=== PATIENT | male | born 1980 | race African-American/Black ===

== ENCOUNTER 2016-12-18 18:42 | Inpatient (IN) | payer SELFPAY ==
[~2016-12-18] VITALS: Ht 177.8 cm; Wt 144.2 kg
[2016-12-18] MEDS ORDERED: HYDROCODONE/APAP 5/325MG TABLET. PO ONE (20:00)
[2016-12-18] MEDS ORDERED: KETOROLAC TROMETHAMINE 60 MG/2 ML INJ. IM ONE (20:00)
--- NOTE | 2016-12-18 20:22 | PHYS DOC ---
Past Medical History Past Medical History: Other Additional Past Medical Histor: PE Past Surgical History: No Surgical History Alcohol Use: Heavy Drug Use: None Adult General Chief Complaint Chief Complaint: ELBOW PROBLEM HPI HPI Patient is a 36 year old male who presents with L elbow pain. Patient reports he awoke yesterday morning with a sharp pain in his L elbow just distal to the joint. No trauma or other inciting event. Pain worse with extension of arm. He took an aleve today with insufficient relief. Patient does report he had similar episode two weeks ago that resolved spontaneously. No other acute complaints. Review of Systems Review of Systems Constitutional: Denies fever or chills Respiratory: Denies cough or shortness of breath Cardiovascular: Denies chest pain GI: Denies abdominal pain, nausea, vomiting, or diarrhea Musculoskeletal: L elbow pain Neurologic: Denies headache, focal weakness or sensory changes Current Medications Current Medications Current Medications Medications (Trade) Dose Ordered Sig/Thomas Start Time Stop Time Status Last Admin Dose Admin Acetaminophen/ Hydrocodone Bitart (Lortab 5/325) 2 tab 1X ONCE 12/18/16 20:00 12/18/16 20:01 DC 12/18/16 20:06 2 TAB Amlodipine Besylate (Norvasc) 10 mg 1X ONCE 12/18/16 20:30 12/18/16 20:38 DC 12/18/16 20:41 10 MG Ketorolac Tromethamine (Toradol Im) 30 mg 1X ONCE 12/18/16 20:00 12/18/16 20:01 DC 12/18/16 20:07 30 MG Oxycodone HCl (Roxicodone) 5 mg 1X ONCE 12/18/16 22:00 12/18/16 22:01 Allergies Allergies Allergies Coded Allergies Type Severity Reaction Last Updated Verified No Known Drug Allergies 12/18/16 No Physical Exam Physical Exam Constitutional: Well developed, well nourished, no acute distress, non-toxic appearance HENT: Normocephalic, atraumatic Eyes: EOMI, conjunctiva normal, no discharge Neck: No stridor Pulmonary: No respiratory distress, lungs CTAB Cardiovascular: RRR, no m/r/g Skin: Warm, dry Neurologic: Alert and oriented X 3 Musculoskeletal: L elbow/arm visually unremarkable compared to R; TTP over proximal, dorsal forearm; no skin lesion or deformity noted; no erythema or warmth to touch; pain with passive or active ROM; 2+ radial pulse, sensation to light touch intact throughout; L hand minimally swollen compared to R Current Patient Data Vital Signs Vital Signs Date Time Temp Pulse Resp B/P Pulse Ox O2 Delivery O2 Flow Rate FiO2 12/18/16 20:41 76 230/141 12/18/16 20:24 20 93 Room Air 12/18/16 19:05 98.1 98.1 EKG EKG [] Radiology/Procedures Radiology/Procedures X-ray L elbow (my read): Bone spur from olecranon. No acute bony abnormality. LUE US: Pending Course & Med Decision Making Course & Med Decision Making Pertinent Labs and Imaging studies reviewed. (See chart for details) Patient is 36 year old male who presents with L elbow pain. Does not appear infectious in origin. Will obtain x-ray of L elbow. Oral pain meds and IM toradol ordered. X-ray results as above. Discussed results with patient, who continues to have significant pain. Will obtain LUE US at this time to r/o DVT. Will turn patient care over to Dr. Iqbal at this time. Dragon Disclaimer Dragon Disclaimer This electronic medical record was generated, in whole or in part, using a voice recognition dictation system. Departure Departure Referrals: NO PCP (PCP) TI SOLANO MD Dec 18, 2016 20:22
[2016-12-18] MEDS ORDERED: AMLODIPINE BESYLATE 5 MG TABLET. PO ONE (20:30)
[2016-12-18] MEDS ORDERED: OXYCODONE IR 5 MG TABLET. PO ONE (22:00)
[2016-12-19] VITALS (8 sets, daily range): BP systolic 161–199; BP diastolic 94–130
--- NOTE | 2016-12-19 00:02 | RAD ---
INDICATION: Left arm pain COMPARISON: None TECHNIQUE: Grayscale, color and spectral doppler ultrasound images are obtained through the left arm deep venous system. FINDINGS: Vascular flow is seen in the internal jugular, subclavian, axillary, brachialis, basilic, cephalic, radial and ulnar veins. Posterior to the elbow in the region of pain there is a fluid collection identified measuring approximately 31 x 11 millimeter. IMPRESSION: No deep vein thrombosis identified of the left arm. Fluid collection posterior to the elbow. Could be secondary to an elbow joint effusion or other causes of fluid such as bursitis. Would correlate with infectious symptoms in the region to ensure there is not an infection of this structure. Electronically signed by: Dennis Colunga (Dec 18, 2016 23:59:51)
--- NOTE | 2016-12-19 02:01 | RAD ---
INDICATION: Pain in the elbow COMPARISON: None TECHNIQUE: Axial CT images obtained through the left elbow without contrast with reformats processed. One or more of the following individualized dose reduction techniques were utilized for this examination: 1. Automated exposure control; 2. Adjustment of the mA and/or kV according to patient size; 3. Use of iterative reconstruction technique. FINDINGS: There is a large elbow joint effusion identified with both anterior and posterior component. No definite acute fracture or dislocation. There is some edema to the subcutaneous soft tissues overlying the posterior aspect of the elbow. IMPRESSION: Large joint effusion is identified of unknown etiology. Cannot exclude infectious involvement on CT. There is some stranding to the subcutaneous fat overlying the posterior aspect of the elbow. Electronically signed by: Dennis Colunga (Dec 19, 2016 02:00:56)
[2016-12-19] MEDS ORDERED: AMLODIPINE BESYLATE 5 MG TABLET. PO ONE (02:30)
[2016-12-19] MEDS ORDERED: CEFTRIAXONE 1GM IVPB FOR OMNI 50 ML IV ONE (02:30)
[2016-12-19 03:01] LABS: BASO % 0 % (0-3); EOS % 1 % (0-3); HEMATOCRIT 53.7 % (39.0-53.0); LYMPH # 2.1 x10^3/uL (1.0-4.8); LYMPH % 34 % (24-48); MEAN CORPUSCULAR HEMOGLOBIN 39 pg (25-35); MEAN CORPUSCULAR HGB CONC 34 g/dL (31-37); MEAN CORPUSCULAR VOLUME 117 fL (79-100); MONO % 9 % (0-9); NEUT % 56 % (31-73); PLATELET COUNT 195 x10^3/uL (140-400); RED BLOOD COUNT 4.59 x10^6/uL (4.30-5.70); RED CELL DISTRIBUTION WIDTH 15.5 % (11.5-14.5); WHITE BLOOD COUNT 6.2 x10^3/uL (4.0-11.0)
[2016-12-19 03:07] LABS: CALCIUM 8.7 mg/dL (8.5-10.1); GFR 101.7; POTASSIUM 3.7 mmol/L (3.5-5.1)
[2016-12-19 03:12] LABS: ALBUMIN 3.7 g/dL (3.4-5.0); ALBUMIN/GLOBULIN RATIO 0.8 (1.0-1.7); C-REACTIVE PROTEIN 22.5 mg/L (0-3.3); TOTAL BILIRUBIN 1.6 mg/dL (0.2-1.0); TOTAL PROTEIN 8.5 g/dL (6.4-8.2)
[2016-12-19] MEDS: IV NORMAL SALINE 1000ML BAG 1,000 ML IV SCH ×2 (03:40→11:40)
[2016-12-19] MEDS ORDERED: FENTANYL PF 100 MCG/2 ML VIAL. IV PRN (03:45)
[2016-12-19] MEDS ORDERED: ONDANSETRON PF 4 MG/2 ML VIAL. IV PRN ×2 (03:45→10:30)
[2016-12-19] MEDS ORDERED: ACETAMINOPHEN 325 MG TABLET. PO PRN ×2 (03:45→10:30)
[2016-12-19 05:26] LABS: PLT ESTIMATE ADEQUATE (ADEQUATE); POLYCHROMASIA SLIGHT
--- NOTE | 2016-12-19 08:02 | RAD ---
ELBOW LEFT 3V Clinical Indication: Elbow pain, unable to move, no acute injury. Comparison: None. Technique: AP, oblique and lateral views of the left elbow are obtained. Findings: No acute fracture or dislocation is seen. No definite posterior fat pad is visualized to suggest effusion or fracture. Degenerative changes are seen with bony spurring present. Surrounding soft tissues demonstrate no acute finding. IMPRESSION: No acute osseous injury seen.
--- NOTE | 2016-12-19 08:23 | PDOC ---
PROGRESS NOTES Subjective Subjective Problems overnight: Objective Vital Signs Vital Signs Date Time Temp Pulse Resp B/P Pulse Ox O2 Delivery O2 Flow Rate FiO2 12/19/16 07:21 18 91 Room Air 12/19/16 05:14 98.3 73 198/123 98.3 Labs Laboratory Tests Test 12/19/16 02:35 White Blood Count 6.2x10^3/uL (4.0-11.0) Red Blood Count 4.59x10^6/uL (4.30-5.70) Hemoglobin 18.0g/dL (13.0-17.5) Hematocrit 53.7% (39.0-53.0) Mean Corpuscular Volume 117fL (79-100) Mean Corpuscular Hemoglobin 39pg (25-35) Mean Corpuscular Hemoglobin Concent 34g/dL (31-37) Red Cell Distribution Width 15.5% (11.5-14.5) Platelet Count 195x10^3/uL (140-400) Neutrophils (%) (Auto) 56% (31-73) Lymphocytes (%) (Auto) 34% (24-48) Monocytes (%) (Auto) 9% (0-9) Eosinophils (%) (Auto) 1% (0-3) Basophils (%) (Auto) 0% (0-3) Neutrophils # (Auto) 3.5x10^3uL (1.8-7.7) Lymphocytes # (Auto) 2.1x10^3/uL (1.0-4.8) Monocytes # (Auto) 0.5x10^3/uL (0.0-1.1) Eosinophils # (Auto) 0.1x10^3/uL (0.0-0.7) Basophils # (Auto) 0.0x10^3/uL (0.0-0.2) Platelet Estimate Adequate (ADEQUATE) Giant Platelets Occ Polychromasia Slight Macrocytosis Mod Erythrocyte Sedimentation Rate 3 (0-15) Sodium Level 142mmol/L (136-145) Potassium Level 3.7mmol/L (3.5-5.1) Chloride Level 101mmol/L (98-107) Carbon Dioxide Level 32mmol/L (21-32) Anion Gap 9 (6-14) Blood Urea Nitrogen 9mg/dL (8-26) Creatinine 1.0mg/dL (0.7-1.3) Estimated GFR (Cockcroft-Gault) 101.7 BUN/Creatinine Ratio 9 (6-20) Glucose Level 101mg/dL (70-99) Lactic Acid Level 1.2mmol/L (0.4-2.0) Calcium Level 8.7mg/dL (8.5-10.1) Total Bilirubin 1.6mg/dL (0.2-1.0) Aspartate Amino Transf (AST/SGOT) 30U/L (15-37) Alanine Aminotransferase (ALT/SGPT) 35U/L (16-63) Alkaline Phosphatase 76U/L (46-116) C-Reactive Protein, Quantitative 22.5mg/L (0-3.3) Total Protein 8.5g/dL (6.4-8.2) Albumin 3.7g/dL (3.4-5.0) Albumin/Globulin Ratio 0.8 (1.0-1.7) Laboratory Tests Test 12/19/16 02:35 White Blood Count 6.2x10^3/uL (4.0-11.0) Red Blood Count 4.59x10^6/uL (4.30-5.70) Hemoglobin 18.0g/dL (13.0-17.5) Hematocrit 53.7% (39.0-53.0) Mean Corpuscular Volume 117fL (79-100) Mean Corpuscular Hemoglobin 39pg (25-35) Mean Corpuscular Hemoglobin Concent 34g/dL (31-37) Red Cell Distribution Width 15.5% (11.5-14.5) Platelet Count 195x10^3/uL (140-400) Neutrophils (%) (Auto) 56% (31-73) Lymphocytes (%) (Auto) 34% (24-48) Monocytes (%) (Auto) 9% (0-9) Eosinophils (%) (Auto) 1% (0-3) Basophils (%) (Auto) 0% (0-3) Neutrophils # (Auto) 3.5x10^3uL (1.8-7.7) Lymphocytes # (Auto) 2.1x10^3/uL (1.0-4.8) Monocytes # (Auto) 0.5x10^3/uL (0.0-1.1) Eosinophils # (Auto) 0.1x10^3/uL (0.0-0.7) Basophils # (Auto) 0.0x10^3/uL (0.0-0.2) Platelet Estimate Adequate (ADEQUATE) Giant Platelets Occ Polychromasia Slight Macrocytosis Mod Erythrocyte Sedimentation Rate 3 (0-15) Sodium Level 142mmol/L (136-145) Potassium Level 3.7mmol/L (3.5-5.1) Chloride Level 101mmol/L (98-107) Carbon Dioxide Level 32mmol/L (21-32) Anion Gap 9 (6-14) Blood Urea Nitrogen 9mg/dL (8-26) Creatinine 1.0mg/dL (0.7-1.3) Estimated GFR (Cockcroft-Gault) 101.7 BUN/Creatinine Ratio 9 (6-20) Glucose Level 101mg/dL (70-99) Lactic Acid Level 1.2mmol/L (0.4-2.0) Calcium Level 8.7mg/dL (8.5-10.1) Total Bilirubin 1.6mg/dL (0.2-1.0) Aspartate Amino Transf (AST/SGOT) 30U/L (15-37) Alanine Aminotransferase (ALT/SGPT) 35U/L (16-63) Alkaline Phosphatase 76U/L (46-116) C-Reactive Protein, Quantitative 22.5mg/L (0-3.3) Total Protein 8.5g/dL (6.4-8.2) Albumin 3.7g/dL (3.4-5.0) Albumin/Globulin Ratio 0.8 (1.0-1.7) Assessment Assessment POD# [], S/P [] Problems: Plan Plan of Care Full consult to follow reviewed all of his images. he has oa of the left elbow with significant joint effusion and history of gout limited rom due to pain I aspirated 12 cc of straw colored fluid from his elbow under sterile conditions. He tolerated the procedure well His pain was much improved after the aspiration. Likely a reactive infusion and not infected, but will keep him NPO until the cell count and crystals return. pain control, ice. BILLY CONTRERAS MD Dec 19, 2016 08:23
[2016-12-19 10:16] LABS: BF CLARITY CLOUDY; BF COLOR YELLOW
--- NOTE | 2016-12-19 10:26 | PDOC1 ---
History and Physical Current Problem List Problem List Problems Medical Problems: (1) Elbow pain Status: Acute (2) Septic joint of left elbow Status: Acute Current Medications Current Medications Current Medications Medications (Trade) Dose Ordered Sig/Thomas Start Time Stop Time Status Last Admin Dose Admin Acetaminophen (Tylenol) 650 mg PRN Q4HRS PRN 12/19/16 03:45 12/20/16 03:44 Acetaminophen/ Hydrocodone Bitart (Lortab 5/325) 2 tab 1X ONCE 12/18/16 20:00 12/18/16 20:01 DC 12/18/16 20:06 2 TAB Amlodipine Besylate (Norvasc) 10 mg 1X ONCE 12/18/16 20:30 12/18/16 20:38 DC 12/18/16 20:41 10 MG Amlodipine Besylate 10 mg 10 mg 1X ONCE 12/19/16 02:30 12/19/16 02:31 DC 12/19/16 02:10 10 MG Ceftriaxone Sodium (Rocephin 1gm Ivpb For Omni) 50 ml @ 100 mls/hr 1X ONCE 12/19/16 02:30 12/19/16 02:59 DC 12/19/16 02:56 100 MLS/HR Fentanyl Citrate 50 mcg 50 mcg PRN Q2HR PRN 12/19/16 03:45 12/20/16 03:44 12/19/16 07:21 50 MCG Ketorolac Tromethamine (Toradol Im) 30 mg 1X ONCE 12/18/16 20:00 12/18/16 20:01 DC 12/18/16 20:07 30 MG Ondansetron HCl (Zofran) 4 mg PRN Q8HRS PRN 12/19/16 03:45 12/20/16 03:44 Oxycodone HCl (Roxicodone) 5 mg 1X ONCE 12/18/16 22:00 12/18/16 22:01 DC 12/18/16 22:16 5 MG Sodium Chloride (Iv Sodium Chloride 0.9% 1000ml Bag) 1,000 ml @ 125 mls/hr Q8H 12/19/16 03:40 12/20/16 03:39 12/19/16 03:40 125 MLS/HR Allergies Allergies Allergies Coded Allergies Type Severity Reaction Last Updated Verified No Known Drug Allergies 12/18/16 No ROS Review of System CONSTITUTIONAL: No fever or chills EYES: No recent changes SKIN: No rash or itching CARDIOVASCULAR: No chest pain, syncope, palpitations, or edema RESPIRATORY: No SOB or cough GASTROINTESTINAL: No nausea, vomiting or abdominal pain NEUROLOGICAL: No headaches or weakness ENDOCRINE: No cold or heat intolerance GENITOURINARY: No urgency or frequency of urination MUSCULOSKELETAL: LEFT ELBOW SWELLING LYMPHATICS: No enlarged lymph nodes PSYCHIATRIC: No anxiety or depression Physical Exam Physical Exam GEN.: No apparent distress. Alert and oriented. OBESE HEENT: Head is normocephalic, atraumatic NECK: Supple. NO JVD LUNGS: Clear to auscultation. normal airflow HEART: RRR, S1, S2 present. Peripheral pulses intact ABDOMEN: Soft, nontender. Positive bowel sounds. EXTREMITIES: Without any cyanosis. left elbow ROM good, no tenderness, seen after elbow tap NEUROLOGIC: Normal speech, normal tone PSYCHIATRIC: Normal affect, normal mood. SKIN: No ulcerations Vitals Vitals Vital Signs Date Time Temp Pulse Resp B/P Pulse Ox O2 Delivery O2 Flow Rate FiO2 12/19/16 08:00 Room Air 12/19/16 07:51 16 96 12/19/16 07:40 97.7 73 168/102 97.7 Labs Labs Laboratory Tests Test 12/19/16 02:35 12/19/16 07:06 White Blood Count 6.2x10^3/uL (4.0-11.0) Red Blood Count 4.59x10^6/uL (4.30-5.70) Hemoglobin 18.0g/dL (13.0-17.5) Hematocrit 53.7% (39.0-53.0) Mean Corpuscular Volume 117fL (79-100) Mean Corpuscular Hemoglobin 39pg (25-35) Mean Corpuscular Hemoglobin Concent 34g/dL (31-37) Red Cell Distribution Width 15.5% (11.5-14.5) Platelet Count 195x10^3/uL (140-400) Neutrophils (%) (Auto) 56% (31-73) Lymphocytes (%) (Auto) 34% (24-48) Monocytes (%) (Auto) 9% (0-9) Eosinophils (%) (Auto) 1% (0-3) Basophils (%) (Auto) 0% (0-3) Neutrophils # (Auto) 3.5x10^3uL (1.8-7.7) Lymphocytes # (Auto) 2.1x10^3/uL (1.0-4.8) Monocytes # (Auto) 0.5x10^3/uL (0.0-1.1) Eosinophils # (Auto) 0.1x10^3/uL (0.0-0.7) Basophils # (Auto) 0.0x10^3/uL (0.0-0.2) Platelet Estimate Adequate (ADEQUATE) Giant Platelets Occ Polychromasia Slight Macrocytosis Mod Erythrocyte Sedimentation Rate 3 (0-15) Sodium Level 142mmol/L (136-145) Potassium Level 3.7mmol/L (3.5-5.1) Chloride Level 101mmol/L (98-107) Carbon Dioxide Level 32mmol/L (21-32) Anion Gap 9 (6-14) Blood Urea Nitrogen 9mg/dL (8-26) Creatinine 1.0mg/dL (0.7-1.3) Estimated GFR (Cockcroft-Gault) 101.7 BUN/Creatinine Ratio 9 (6-20) Glucose Level 101mg/dL (70-99) Lactic Acid Level 1.2mmol/L (0.4-2.0) Calcium Level 8.7mg/dL (8.5-10.1) Total Bilirubin 1.6mg/dL (0.2-1.0) Aspartate Amino Transf (AST/SGOT) 30U/L (15-37) Alanine Aminotransferase (ALT/SGPT) 35U/L (16-63) Alkaline Phosphatase 76U/L (46-116) C-Reactive Protein, Quantitative 22.5mg/L (0-3.3) Total Protein 8.5g/dL (6.4-8.2) Albumin 3.7g/dL (3.4-5.0) Albumin/Globulin Ratio 0.8 (1.0-1.7) Body Fluid Source Synovial Body Fluid Color Yellow Body Fluid Clarity Cloudy Body Fluid Nucleated Cells 94280/cmm Body Fluid Mononuclear WBCs (%) 8% Body Fluid Polymorphonuclear Cells 92% Body Fluid Total RBCs Counted 1/cmm Laboratory Tests Test 12/19/16 02:35 12/19/16 07:06 White Blood Count 6.2x10^3/uL (4.0-11.0) Red Blood Count 4.59x10^6/uL (4.30-5.70) Hemoglobin 18.0g/dL (13.0-17.5) Hematocrit 53.7% (39.0-53.0) Mean Corpuscular Volume 117fL (79-100) Mean Corpuscular Hemoglobin 39pg (25-35) Mean Corpuscular Hemoglobin Concent 34g/dL (31-37) Red Cell Distribution Width 15.5% (11.5-14.5) Platelet Count 195x10^3/uL (140-400) Neutrophils (%) (Auto) 56% (31-73) Lymphocytes (%) (Auto) 34% (24-48) Monocytes (%) (Auto) 9% (0-9) Eosinophils (%) (Auto) 1% (0-3) Basophils (%) (Auto) 0% (0-3) Neutrophils # (Auto) 3.5x10^3uL (1.8-7.7) Lymphocytes # (Auto) 2.1x10^3/uL (1.0-4.8) Monocytes # (Auto) 0.5x10^3/uL (0.0-1.1) Eosinophils # (Auto) 0.1x10^3/uL (0.0-0.7) Basophils # (Auto) 0.0x10^3/uL (0.0-0.2) Platelet Estimate Adequate (ADEQUATE) Giant Platelets Occ Polychromasia Slight Macrocytosis Mod Erythrocyte Sedimentation Rate 3 (0-15) Sodium Level 142mmol/L (136-145) Potassium Level 3.7mmol/L (3.5-5.1) Chloride Level 101mmol/L (98-107) Carbon Dioxide Level 32mmol/L (21-32) Anion Gap 9 (6-14) Blood Urea Nitrogen 9mg/dL (8-26) Creatinine 1.0mg/dL (0.7-1.3) Estimated GFR (Cockcroft-Gault) 101.7 BUN/Creatinine Ratio 9 (6-20) Glucose Level 101mg/dL (70-99) Lactic Acid Level 1.2mmol/L (0.4-2.0) Calcium Level 8.7mg/dL (8.5-10.1) Total Bilirubin 1.6mg/dL (0.2-1.0) Aspartate Amino Transf (AST/SGOT) 30U/L (15-37) Alanine Aminotransferase (ALT/SGPT) 35U/L (16-63) Alkaline Phosphatase 76U/L (46-116) C-Reactive Protein, Quantitative 22.5mg/L (0-3.3) Total Protein 8.5g/dL (6.4-8.2) Albumin 3.7g/dL (3.4-5.0) Albumin/Globulin Ratio 0.8 (1.0-1.7) Body Fluid Source Synovial Body Fluid Color Yellow Body Fluid Clarity Cloudy Body Fluid Nucleated Cells 05535/cmm Body Fluid Mononuclear WBCs (%) 8% Body Fluid Polymorphonuclear Cells 92% Body Fluid Total RBCs Counted 1/cmm VTE Prophylaxis Ordered VTE Prophylaxis Devices: Yes VTE Pharmacological Prophylaxi: Yes TY DEL RIO MD Dec 19, 2016 10:26
[2016-12-19] MEDS ORDERED: ALBUTEROL SULFATE 2.5 MG/3 ML NEBU. NEB PRN (10:30)
--- NOTE | 2016-12-19 11:03 | ACF ---
Admit Criteria Forms Admit Criteria Forms Admit Criteria Forms MUSCULOSKELETAL DISEASE GRG Clinical Indications for Admission to Inpatient Care (Place 'X' for any and all applicable criteria): Hospital admission is needed for appropriate care of the patient because of 1 or more of the following: [ ]I. Fracture, dislocation, or other musculoskeletal injury requiring inpatient care(medical) as indicated by 1 or more of the following(4)(5)(6)(7) [ ]a) Vertebral fracture requiring observation for instability or neurologic compromise (8) [ ]b) Compartment syndrome (proven or cannot be ruled out during observation level of care) (9) [ ]c) Limb-threatening injury [ ]d) Major injury requiring inpatient stabilization such as traction initiation or external fixation before internal fixation or closure of complex or open fracture [ ]e) Major injury requiring inpatient treatment after emergency or observation level care (as appropriate) [ ]f) Severe pain requiring acute inpatient management [ ]g) Injury with suspicion of abuse or neglect (eg., child, dependent elderly) [ ]II. Newly diagnosed or suspected bone, joint, or orthopedic device infection (e.g., osteomyelitis, septic arthritis) needing 1 or more of the following(1)(2)(3) [ ]a) IV antibiotics that cannot be initiated in other than inpatient setting (e.g., patient too unstable or home infusion not available) [ ]b) Device removal or replacement [ ]c) Bone or soft tissue debridement [ ]d) Joint drainage (drain placement or repetitive aspirations) [ ]III. Severe rheumatologic disease (e.g., systemic lupus erythematosus, rheumatoid arthritis) with complications or comorbidities (Also use Optimal Recovery Care Criteria or General Recovery Criteria as appropriate on the basis of predominant condition), including 1 or more of the following( 10)(11)(12)(13) [ ]a) Severe infection (e.g., TRAVELING AUDITOR infection, sepsis) (14) [ ]b) Respiratory complications, including 1 or more of the following : [ ]i) Pleural effusion with respiratory compromise [ ]ii) Pulmonary hypertension with congestive failure [ ]iii) Respiratory failure [ ]iv) Pulmonary hemorrhage (15) [ ]c) Hematologic disease, including 1 or more of the following: [ ]i) Coagulopathy with bleeding [ ]ii) Thrombosis with hypercoagulable state [ ]iii) Thrombotic thrombocytopenic purpura [ ]d) Cerebritis with seizures, psychosis, or other severe abnormalities [ ]e) Vertebral destruction with monitoring needed for cervical myelopathy& possible respiratory compromise [ ]f) Exacerbation that requires inpatient treatment (e.g., intravenous immunosuppression) (16) [ ]g) Acute renal failure [ ]h) Cerebritis with seizures, psychosis, Altered mental status, or other neurologic abnormalities [ ]i) Pericardial effusion with tamponade [ ]j) Vertebral destruction, with monitoring needed for cervical myelopathy and possible respiratory compromise [ ]IV. Severe vasculitis with complications or comorbidities (Also use Optimal Recovery Care Criteria General Recovery Criteria as appropriate on the basis of predominant condition), including 1 or more of the following(11)(12)(17)(18)(19)(20) [ ]a) Exacerbation that requires inpatient treatment (e.g., intravenous immunosuppression) (19)(21) [ ]b) Pulmonary hemorrhage (15) [ ]c) TRAVELING AUDITOR vasculitis with seizures, psychosis, Altered mental status that is severe or persistent, or other severe abnormalities (22) [ ]d) Cerebral infarction [ ]e) Gastrointestinal ischemia [ ]f) Gangrene or threatened amputation [ ]g) Renal failure (16) [ ]h) Other significant complications of vasculitis ( eg., tissue or organ ischemia, organ dysfunction ) [ ]V. Severe myopathy as indicated by 1 or more of the following (28)(29) [ ]a) New onset of airway compromise or inability to swallow [ ]b) Respiratory deterioration with observation needed for impending respiratory failure [ ]c) Exacerbation that requires inpatient treatment (e.g., intravenous immunosuppression) [ ]. Severe crystal gout (arthropathy) indicated by 1 or more of the following (23)(24) [ ]a) Severe pain requiring acute inpatient management [ ]b) Exacerbation that requires inpatient treatment (e.g., intravenous treatment) [ ]VII.Rhabdomyolysis and 1 or more of the following (25)(26)(27) [ ]a) Acute renal failure [ ]b) Need for intravenous hydration after emergency or observation level care (as appropriate) [ ]c) Inability to maintain oral hydration [ ]d) Change in mental status [ ]e) Electrolyte abnormality that remains after emergency or observation level care (as appropriate) [ ]VIII Post amputation complication, as indicated by ANY ONE of the following [ ]a) Infection [ ]b) Dehiscence [ ]c) Myodesis failure [ ]IX. Severe pain requiring acute inpatient management due to musculoskeletal condition [ ]X. Musculoskeletal Disease and ALL of the following: [ ]a) Symptom or finding for which emergency and observation care have failed or are not considered appropriate (Use General Criteria: Observation Care as appropriate) [ ]b) Presence of ANY ONE of the following [ ]i) A General Admission Criteria [ ]ii) A Pediatric General Admission Criteria The original [facility] content created by [facility] has been revised. The portions of the content which have been revised are identified through the use of italic text or in bold, and [facility] has neither reviewed nor approved the modified material. All other unmodified content is copyright [facility]. Please see references footnoted in the original [facility] edition 2016 SANDY GARCIA Dec 19, 2016 11:03
[2016-12-19] MEDS: HYDROCHLOROTHIAZIDE 12.5 MG CAPSULE. PO SCH (12:23)
[2016-12-19] MEDS: AMLODIPINE BESYLATE 10 MG TABLET. PO SCH (12:23)
[2016-12-19] MEDS: HYDROCODONE/APAP 5/325MG TABLET. PO PRN ×2 (12:24→21:26)
[2016-12-19] MEDS: hydrALAZINE 20 MG/ML VIAL. IVP PRN ×2 (15:27→21:25)
--- NOTE | 2016-12-19 20:50 | PDOC2 ---
CONSULT Date of Consult Date of Consult DATE: 12/19/16 TIME: 20:41 Reason for Consult Reason for Consult: left elbow pain, ? septic arthritis Identification/Chief Complaint Chief Complaint left elbow pain Source Source: Chart review, Patient History of Present Illness Reason for Visit: The patient is a 36 year old rhd male who presented to the ER with two days of elbow pain. He states it first started hurting a few weeks ago, atraumatically, but that it got better. Two days ago his pain increased and got to the point that he had to leave his job and come to the ER. He has decreased rom due to the pain. No nausea, vomiting, fevers, chills. Past Medical History Rheumatologic: Gout Past Surgical History Past Surgical History: No pertinent history Family History Family History: Obesity Social History No ALCOHOL: social Drugs: None Lives: with Family Current Problem List Problem List Problems Medical Problems: (1) Elbow pain Status: Acute (2) Septic joint of left elbow Status: Acute Current Medications Current Medications Current Medications Acetaminophen/ Hydrocodone Bitart (Lortab 5/325) 2 tab 1X ONCE PO Last administered on 12/18/16 20:06; Start 12/18/16 at 20:00; Stop 12/18/16 at 20:01 ; Status DC Ketorolac Tromethamine (Toradol Im) 30 mg 1X ONCE IM Last administered on 12/18 20:07; Start 12/18/16 at 20:00; Stop 12/18/16 at 20:01; Status DC Amlodipine Besylate (Norvasc) 10 mg 1X ONCE PO Last administered on 12/18/16 20:41; Start 12/18/16 at 20:30; Stop 12/18/16 at 20:38; Status DC Oxycodone HCl (Roxicodone) 5 mg 1X ONCE PO Last administered on 12/18/16 22: 16; Start 12/18/16 at 22:00; Stop 12/18/16 at 22:01; Status DC Amlodipine Besylate 10 mg 10 mg 1X ONCE PO Last administered on 12/19/16 02: 10; Start 12/19/16 at 02:30; Stop 12/19/16 at 02:31; Status DC Ceftriaxone Sodium (Rocephin 1gm Ivpb For Omni) 50 ml @ 100 mls/hr 1X ONCE IV Last administered on 12/19/16 02:56; Start 12/19/16 at 02:30; Stop 12/19/16 at 02:59; Status DC Ondansetron HCl (Zofran) 4 mg PRN Q8HRS PRN IV NAUSEA/VOMITING; Start 12/19/16 at 03:45; Stop 12/19/16 at 11:53; Status DC Fentanyl Citrate 50 mcg 50 mcg PRN Q2HR PRN IV SEVERE PAIN Last administered on 12/19/16 07:21; Start 12/19/16 at 03:45; Stop 12/19/16 at 11:53; Status DC Sodium Chloride (Iv Sodium Chloride 0.9% 1000ml Bag) 1,000 ml @ 125 mls/hr Q8H IV Last administered on 12/19/16 03:40; Start 12/19/16 at 03:40; Stop at 11:47; Status DC Acetaminophen (Tylenol) 650 mg PRN Q4HRS PRN PO FEVER; Start 12/19/16 at 03:45 ; Stop 12/19/16 at 11:53; Status DC Acetaminophen (Tylenol) 325 mg PRN Q6HRS PRN PO MILD PAIN / TEMP; Start at 10:30 Acetaminophen/ Hydrocodone Bitart (Lortab 5/325) 1 tab PRN Q6HRS PRN PO MODERATE TO SEVERE PAIN Last administered on 12/19/16 12:24; Start 12/19/16 at 10:30 Hydralazine HCl (Apresoline) 10 mg PRN Q4HRS PRN IVP ELEVATED BP, SEE COMMENTS Last administered on 12/19/16 15:27; Start 12/19/16 at 10:30 Ondansetron HCl (Zofran) 4 mg PRN Q8HRS PRN IV NAUSEA/VOMITING; Start 12/19/16 at 10:30 Albuterol Sulfate (Ventolin Neb Soln) 2.5 mg PRN Q4HRS PRN NEB SHORTNESS OF BREATH; Start 12/19/16 at 10:30 Amlodipine Besylate (Norvasc) 10 mg DAILY PO Last administered on 12/19/16 12: 23; Start 12/19/16 at 12:30 Hydrochlorothiazide 12.5 mg 12.5 mg DAILY PO Last administered on 12/19/16t 12: 23; Start 12/19/16 at 12:30 Multivitamins/ Thiamine HCl/ Folic Acid/Sodium Chloride (Infuvite Adult/ Iv Sodium Chloride 0.9% 1000ml Bag) 1,011.2 ml @ 100 mls/ hr DAILY IV ; Start at 20:00; Stop 12/25/16 at 19:59 Lorazepam (Ativan) 2 mg Q6H PO ; Start 12/19/16 at 19:00; Stop 12/21/16 at 01:01 Enoxaparin Sodium (Lovenox 40mg Syringe) 40 mg Q12HR SQ ; Start 12/19/16 at 21: 00 Allergies Allergies: Coded Allergies: No Known Drug Allergies (Unverified , 12/18/16) ROS General: No: Appetite, Chills, Fatigue, Malaise, Night Sweats, Other Musculoskeletal: Yes Joint Pain, Yes Joint Stiffness, Yes Joint Swelling Physical Exam General: Alert, Oriented X3, Cooperative HEENT: Atraumatic Lungs: Normal air movement Heart: Regular rate Abdomen: Other (obese) Extremities: No clubbing, No cyanosis, No edema, Normal pulses, Other Skin: No rashes Neuro: Normal speech Psych/Mental Status: Mental status NL MUSCULOSKELETAL: Abnormal exam of left (His left elbow has decreased rom, pain with supination. unable to fully flex or exend compared to the opposite side. rom increased significantly back to nearly normal after obtaining the fluid from the joint. nvi distally. ) Vitals VITALS Vital Signs Date Time Temp Pulse Resp B/P Pulse Ox O2 Delivery O2 Flow Rate FiO2 12/19/16 19:43 98.2 92 16 172/99 94 Room Air 98.2 Labs Labs Laboratory Tests Test 12/19/16 02:35 12/19/16 07:06 White Blood Count 6.2x10^3/uL (4.0-11.0) Red Blood Count 4.59x10^6/uL (4.30-5.70) Hemoglobin 18.0g/dL (13.0-17.5) Hematocrit 53.7% (39.0-53.0) Mean Corpuscular Volume 117fL (79-100) Mean Corpuscular Hemoglobin 39pg (25-35) Mean Corpuscular Hemoglobin Concent 34g/dL (31-37) Red Cell Distribution Width 15.5% (11.5-14.5) Platelet Count 195x10^3/uL (140-400) Neutrophils (%) (Auto) 56% (31-73) Lymphocytes (%) (Auto) 34% (24-48) Monocytes (%) (Auto) 9% (0-9) Eosinophils (%) (Auto) 1% (0-3) Basophils (%) (Auto) 0% (0-3) Neutrophils # (Auto) 3.5x10^3uL (1.8-7.7) Lymphocytes # (Auto) 2.1x10^3/uL (1.0-4.8) Monocytes # (Auto) 0.5x10^3/uL (0.0-1.1) Eosinophils # (Auto) 0.1x10^3/uL (0.0-0.7) Basophils # (Auto) 0.0x10^3/uL (0.0-0.2) Platelet Estimate Adequate (ADEQUATE) Giant Platelets Occ Polychromasia Slight Macrocytosis Mod Erythrocyte Sedimentation Rate 3 (0-15) Sodium Level 142mmol/L (136-145) Potassium Level 3.7mmol/L (3.5-5.1) Chloride Level 101mmol/L (98-107) Carbon Dioxide Level 32mmol/L (21-32) Anion Gap 9 (6-14) Blood Urea Nitrogen 9mg/dL (8-26) Creatinine 1.0mg/dL (0.7-1.3) Estimated GFR (Cockcroft-Gault) 101.7 BUN/Creatinine Ratio 9 (6-20) Glucose Level 101mg/dL (70-99) Lactic Acid Level 1.2mmol/L (0.4-2.0) Calcium Level 8.7mg/dL (8.5-10.1) Total Bilirubin 1.6mg/dL (0.2-1.0) Aspartate Amino Transf (AST/SGOT) 30U/L (15-37) Alanine Aminotransferase (ALT/SGPT) 35U/L (16-63) Alkaline Phosphatase 76U/L (46-116) C-Reactive Protein, Quantitative 22.5mg/L (0-3.3) Total Protein 8.5g/dL (6.4-8.2) Albumin 3.7g/dL (3.4-5.0) Albumin/Globulin Ratio 0.8 (1.0-1.7) Body Fluid Source Synovial Body Fluid Color Yellow Body Fluid Clarity Cloudy Body Fluid Nucleated Cells 77322/cmm Body Fluid Mononuclear WBCs (%) 8% Body Fluid Polymorphonuclear Cells 92% Body Fluid Total RBCs Counted 1/cmm Laboratory Tests Test 12/19/16 02:35 12/19/16 07:06 White Blood Count 6.2x10^3/uL (4.0-11.0) Red Blood Count 4.59x10^6/uL (4.30-5.70) Hemoglobin 18.0g/dL (13.0-17.5) Hematocrit 53.7% (39.0-53.0) Mean Corpuscular Volume 117fL (79-100) Mean Corpuscular Hemoglobin 39pg (25-35) Mean Corpuscular Hemoglobin Concent 34g/dL (31-37) Red Cell Distribution Width 15.5% (11.5-14.5) Platelet Count 195x10^3/uL (140-400) Neutrophils (%) (Auto) 56% (31-73) Lymphocytes (%) (Auto) 34% (24-48) Monocytes (%) (Auto) 9% (0-9) Eosinophils (%) (Auto) 1% (0-3) Basophils (%) (Auto) 0% (0-3) Neutrophils # (Auto) 3.5x10^3uL (1.8-7.7) Lymphocytes # (Auto) 2.1x10^3/uL (1.0-4.8) Monocytes # (Auto) 0.5x10^3/uL (0.0-1.1) Eosinophils # (Auto) 0.1x10^3/uL (0.0-0.7) Basophils # (Auto) 0.0x10^3/uL (0.0-0.2) Platelet Estimate Adequate (ADEQUATE) Giant Platelets Occ Polychromasia Slight Macrocytosis Mod Erythrocyte Sedimentation Rate 3 (0-15) Sodium Level 142mmol/L (136-145) Potassium Level 3.7mmol/L (3.5-5.1) Chloride Level 101mmol/L (98-107) Carbon Dioxide Level 32mmol/L (21-32) Anion Gap 9 (6-14) Blood Urea Nitrogen 9mg/dL (8-26) Creatinine 1.0mg/dL (0.7-1.3) Estimated GFR (Cockcroft-Gault) 101.7 BUN/Creatinine Ratio 9 (6-20) Glucose Level 101mg/dL (70-99) Lactic Acid Level 1.2mmol/L (0.4-2.0) Calcium Level 8.7mg/dL (8.5-10.1) Total Bilirubin 1.6mg/dL (0.2-1.0) Aspartate Amino Transf (AST/SGOT) 30U/L (15-37) Alanine Aminotransferase (ALT/SGPT) 35U/L (16-63) Alkaline Phosphatase 76U/L (46-116) C-Reactive Protein, Quantitative 22.5mg/L (0-3.3) Total Protein 8.5g/dL (6.4-8.2) Albumin 3.7g/dL (3.4-5.0) Albumin/Globulin Ratio 0.8 (1.0-1.7) Body Fluid Source Synovial Body Fluid Color Yellow Body Fluid Clarity Cloudy Body Fluid Nucleated Cells 01185/cmm Body Fluid Mononuclear WBCs (%) 8% Body Fluid Polymorphonuclear Cells 92% Body Fluid Total RBCs Counted 1/cmm Images Images Xrays and CT scan of the left elbow reveals osteoarthritic 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 Assessment/Plan Assessment/Plan The patient is a 36 year old rhd male with left elbow pain and limited rom. -I aspirated his elbow under sterile conditions and obtained 12 cc of straw colored fluid. It looked reactive in nature. He is to remain npo until I get the lab results. I sent the samples for gram stain, crystals, and culture. Will follow results. Likely elbow oa. He can take nsaids for pain as tolerated, ice, and elevate the arm. BILLY CONTRERAS MD Dec 19, 2016 20:50
[2016-12-19] MEDS: ENOXAPARIN 40 MG/0.4 ML SYRINGE. SQ SCH (21:16)
[2016-12-19] MEDS: MULTIVIT INFUSN,ADULT 4,VIT K 10 ML, THIAMINE 100 MG, FOLIC ACID 1 MG in IV NORMAL SALI... IV SCH (21:16)
[2016-12-19] MEDS: LORAZEPAM 1 MG TABLET. PO SCH (21:22)
[2016-12-20] MEDS: LORAZEPAM 1 MG TABLET. PO SCH ×3 (01:00→13:00)
[2016-12-20 03:30] VITALS: BP 162/93
[2016-12-20 05:10] LABS: BASO % 1 % (0-3); EOS % 2 % (0-3); HEMATOCRIT 50.6 % (39.0-53.0); HEMOGLOBIN 16.9 g/dL (13.0-17.5); LYMPH # 1.4 x10^3/uL (1.0-4.8); LYMPH % 30 % (24-48); MEAN CORPUSCULAR HEMOGLOBIN 39 pg (25-35); MEAN CORPUSCULAR HGB CONC 33 g/dL (31-37); MEAN CORPUSCULAR VOLUME 117 fL (79-100); MONO % 10 % (0-9); NEUT % 58 % (31-73); PLATELET COUNT 174 x10^3/uL (140-400); RED BLOOD COUNT 4.32 x10^6/uL (4.30-5.70); RED CELL DISTRIBUTION WIDTH 15.3 % (11.5-14.5); WHITE BLOOD COUNT 4.9 x10^3/uL (4.0-11.0)
[2016-12-20 05:52] LABS: CALCIUM 8.7 mg/dL (8.5-10.1); CREATININE 0.8 mg/dL (0.7-1.3); GFR 131.6; POTASSIUM 3.7 mmol/L (3.5-5.1)
[2016-12-20 07:55] VITALS: BP 155/99
--- NOTE | 2016-12-20 08:48 | HP ---
ADMIT DATE: 12/19/2016 CHIEF COMPLAINT: Left elbow pain. HISTORY OF PRESENT ILLNESS: A 36-year-old male patient with no significant prior medical conditions, presented to the ER with one-day history of left elbow pain and swelling. The patient woke up yesterday with sharp pain around the elbow. Denies any trauma. Denies any fever. He tried some [id number] medications; however, symptoms did not improve. He had similar episodes in the past, which had resolved. Denies any gout in the past; however, he had history of PE in the past. PAST MEDICAL HISTORY: PE. PAST SURGICAL HISTORY: None. SOCIAL HISTORY: Takes alcohol. No smoking. No drug abuse. REVIEW OF SYSTEM AND PHYSICAL EXAMINATION: Please see my electronic H and P. IMAGING STUDIES: Elbow, extremity ultrasound, no DVT, fluid collection posterior to the elbow. Left upper extremity CAT scan showed large joint effusion. LABORATORY FINDINGS: CBC: Hemoglobin 18.4, hematocrit is 53.7, MCV 117, MCH 34. Chemistry within normal limits. Total bilirubin is 1.6, CRP is 22.5, albumin is 3.7. ____ fluid color is yellow, fluid clarity cloudy, nucleated cells 44,500, rbc 1, polymorphonuclear leukocytes 92. Gram stain: wbc a few, ____, rbc occasional. ASSESSMENT AND PLAN: 1. Left elbow pain and swelling suspected due to reactive process or bursitis. 2. Accelerated hypertension present on admission. 3. Prior history of pulmonary embolism. 4. Heavy alcohol use. PLAN: 1. The patient had aspiration of the fluid by Dr. Zepeda this morning. Fluid analysis was not suggestive of any infectious process, most likely reactive process ; however, patient's blood pressure were not controlled. His blood pressures were running around 170s to 160s and also his systolic blood pressure more than 200at presentation so I started him on amlodipine and hydrochlorothiazide along with prn hydralazine so we will wait for a response. 2. Pain control with hydrocodone. 3. he had heavy alcohol use. I have started him on alcohol withdrawal prevention with banana bag and PRN Ativan 4. DVT prophylaxis. 5. The patient has high hemoglobin; this could be due to his obesity. 6.Obesity. TY DEL RIO MD DR: ALFONSO/prudence JOB#: [id number] / [id number] SOLIS
[2016-12-20] MEDS: MULTIVIT INFUSN,ADULT 4,VIT K 10 ML, THIAMINE 100 MG, FOLIC ACID 1 MG in IV NORMAL SALI... IV SCH (09:00)
[2016-12-20] MEDS: HYDROCHLOROTHIAZIDE 12.5 MG CAPSULE. PO SCH (09:29)
[2016-12-20] MEDS: AMLODIPINE BESYLATE 10 MG TABLET. PO SCH (09:29)
[2016-12-20] MEDS: ENOXAPARIN 40 MG/0.4 ML SYRINGE. SQ SCH (09:30)
--- NOTE | 2016-12-20 09:45 | RAD ---
RENAL COMPLETE BILATERAL Clinical Indication: HTN SEVERE Comparison: None. Technique: Transverse and longitudinal sonography of the kidneys and urinary bladder is performed. Findings: The right kidney measures 11.3 x 6.8 x 4.2 cm, with the left kidney measures 12.2 x 26.2 x 6.7 cm. No hydronephrosis is seen. Urinary bladder is somewhat distended with anechoic urine and grossly unremarkable. Bilateral ureteral jets are visualized. Proximal aorta is not seen, with mid and distal aorta appearing normal in caliber. IVC is patent. Incidental note is made of increased echogenicity of the liver suggesting hepatic steatosis. IMPRESSION: 1. No hydronephrosis. 2. Hepatic steatosis is incidentally noted.
[2016-12-20 11:13] VITALS: BP 164/100
--- NOTE | 2016-12-20 12:22 | PDOC ---
PROGRESS NOTES Chief Complaint Chief Complaint cc: elbow pain and swelling A/P 1. Left elbow pain and swelling suspect a reactive process or bursitis.: Gram stain no bacteria, pain resolved, swelling better, good ROM 2. Accelerated hypertension present on admission.: Possible sleep apnea, on amlodipine and HCTZ, echo pending, monitor potassium 3. Prior history of pulmonary embolism.: on DVT prophylaxis. 4. Heavy alcohol use.: Multivitamins and prn Ativan History of Present Illness History of Present Illness elbow better no fever pain better. Vitals Vitals Vital Signs Date Time Temp Pulse Resp B/P Pulse Ox O2 Delivery O2 Flow Rate FiO2 12/20/16 11:13 97.9 85 16 164/100 94 Room Air 97.9 Physical Exam General: Alert, Oriented X3, Cooperative Heart: Regular rate, Normal S1, Normal S2 Lungs: Clear Abdomen: Other (obese) Extremities: No clubbing, No cyanosis, No edema, Normal pulses, Other Skin: No rashes Labs LABS Laboratory Tests Test 12/20/16 04:45 White Blood Count 4.9x10^3/uL (4.0-11.0) Red Blood Count 4.32x10^6/uL (4.30-5.70) Hemoglobin 16.9g/dL (13.0-17.5) Hematocrit 50.6% (39.0-53.0) Mean Corpuscular Volume 117fL (79-100) Mean Corpuscular Hemoglobin 39pg (25-35) Mean Corpuscular Hemoglobin Concent 33g/dL (31-37) Red Cell Distribution Width 15.3% (11.5-14.5) Platelet Count 174x10^3/uL (140-400) Neutrophils (%) (Auto) 58% (31-73) Lymphocytes (%) (Auto) 30% (24-48) Monocytes (%) (Auto) 10% (0-9) Eosinophils (%) (Auto) 2% (0-3) Basophils (%) (Auto) 1% (0-3) Neutrophils # (Auto) 2.8x10^3uL (1.8-7.7) Lymphocytes # (Auto) 1.4x10^3/uL (1.0-4.8) Monocytes # (Auto) 0.5x10^3/uL (0.0-1.1) Eosinophils # (Auto) 0.1x10^3/uL (0.0-0.7) Basophils # (Auto) 0.0x10^3/uL (0.0-0.2) Sodium Level 137mmol/L (136-145) Potassium Level 3.7mmol/L (3.5-5.1) Chloride Level 99mmol/L (98-107) Carbon Dioxide Level 28mmol/L (21-32) Anion Gap 10 (6-14) Blood Urea Nitrogen 9mg/dL (8-26) Creatinine 0.8mg/dL (0.7-1.3) Estimated GFR (Cockcroft-Gault) 131.6 Glucose Level 97mg/dL (70-99) Calcium Level 8.7mg/dL (8.5-10.1) Assessment and Plan Assessmemt and Plan Problems Medical Problems: (1) Elbow pain Status: Acute (2) Septic joint of left elbow Status: Acute Problems: Comment Review of Relevant I have reviewed the following items domingo (where applicable) has been applied. Labs Laboratory Tests Test 12/19/16 02:35 12/19/16 07:06 12/20/16 04:45 White Blood Count 6.2x10^3/uL (4.0-11.0) 4.9x10^3/uL (4.0-11.0) Red Blood Count 4.59x10^6/uL (4.30-5.70) 4.32x10^6/uL (4.30-5.70) Hemoglobin 18.0g/dL (13.0-17.5) 16.9g/dL (13.0-17.5) Hematocrit 53.7% (39.0-53.0) 50.6% (39.0-53.0) Mean Corpuscular Volume 117fL (79-100) 117fL (79-100) Mean Corpuscular Hemoglobin 39pg (25-35) 39pg (25-35) Mean Corpuscular Hemoglobin Concent 34g/dL (31-37) 33g/dL (31-37) Red Cell Distribution Width 15.5% (11.5-14.5) 15.3% (11.5-14.5) Platelet Count 195x10^3/uL (140-400) 174x10^3/uL (140-400) Neutrophils (%) (Auto) 56% (31-73) 58% (31-73) Lymphocytes (%) (Auto) 34% (24-48) 30% (24-48) Monocytes (%) (Auto) 9% (0-9) 10% (0-9) Eosinophils (%) (Auto) 1% (0-3) 2% (0-3) Basophils (%) (Auto) 0% (0-3) 1% (0-3) Neutrophils # (Auto) 3.5x10^3uL (1.8-7.7) 2.8x10^3uL (1.8-7.7) Lymphocytes # (Auto) 2.1x10^3/uL (1.0-4.8) 1.4x10^3/uL (1.0-4.8) Monocytes # (Auto) 0.5x10^3/uL (0.0-1.1) 0.5x10^3/uL (0.0-1.1) Eosinophils # (Auto) 0.1x10^3/uL (0.0-0.7) 0.1x10^3/uL (0.0-0.7) Basophils # (Auto) 0.0x10^3/uL (0.0-0.2) 0.0x10^3/uL (0.0-0.2) Platelet Estimate Adequate (ADEQUATE) Giant Platelets Occ Polychromasia Slight Macrocytosis Mod Erythrocyte Sedimentation Rate 3 (0-15) Sodium Level 142mmol/L (136-145) 137mmol/L (136-145) Potassium Level 3.7mmol/L (3.5-5.1) 3.7mmol/L (3.5-5.1) Chloride Level 101mmol/L (98-107) 99mmol/L (98-107) Carbon Dioxide Level 32mmol/L (21-32) 28mmol/L (21-32) Anion Gap 9 (6-14) 10 (6-14) Blood Urea Nitrogen 9mg/dL (8-26) 9mg/dL (8-26) Creatinine 1.0mg/dL (0.7-1.3) 0.8mg/dL (0.7-1.3) Estimated GFR (Cockcroft-Gault) 101.7 131.6 BUN/Creatinine Ratio 9 (6-20) Glucose Level 101mg/dL (70-99) 97mg/dL (70-99) Lactic Acid Level 1.2mmol/L (0.4-2.0) Calcium Level 8.7mg/dL (8.5-10.1) 8.7mg/dL (8.5-10.1) Total Bilirubin 1.6mg/dL (0.2-1.0) Aspartate Amino Transf (AST/SGOT) 30U/L (15-37) Alanine Aminotransferase (ALT/SGPT) 35U/L (16-63) Alkaline Phosphatase 76U/L (46-116) C-Reactive Protein, Quantitative 22.5mg/L (0-3.3) Total Protein 8.5g/dL (6.4-8.2) Albumin 3.7g/dL (3.4-5.0) Albumin/Globulin Ratio 0.8 (1.0-1.7) Body Fluid Source Synovial Body Fluid Color Yellow Body Fluid Clarity Cloudy Body Fluid Nucleated Cells 13068/cmm Body Fluid Mononuclear WBCs (%) 8% Body Fluid Polymorphonuclear Cells 92% Body Fluid Total RBCs Counted 1/cmm Laboratory Tests Test 12/20/16 04:45 White Blood Count 4.9x10^3/uL (4.0-11.0) Red Blood Count 4.32x10^6/uL (4.30-5.70) Hemoglobin 16.9g/dL (13.0-17.5) Hematocrit 50.6% (39.0-53.0) Mean Corpuscular Volume 117fL (79-100) Mean Corpuscular Hemoglobin 39pg (25-35) Mean Corpuscular Hemoglobin Concent 33g/dL (31-37) Red Cell Distribution Width 15.3% (11.5-14.5) Platelet Count 174x10^3/uL (140-400) Neutrophils (%) (Auto) 58% (31-73) Lymphocytes (%) (Auto) 30% (24-48) Monocytes (%) (Auto) 10% (0-9) Eosinophils (%) (Auto) 2% (0-3) Basophils (%) (Auto) 1% (0-3) Neutrophils # (Auto) 2.8x10^3uL (1.8-7.7) Lymphocytes # (Auto) 1.4x10^3/uL (1.0-4.8) Monocytes # (Auto) 0.5x10^3/uL (0.0-1.1) Eosinophils # (Auto) 0.1x10^3/uL (0.0-0.7) Basophils # (Auto) 0.0x10^3/uL (0.0-0.2) Sodium Level 137mmol/L (136-145) Potassium Level 3.7mmol/L (3.5-5.1) Chloride Level 99mmol/L (98-107) Carbon Dioxide Level 28mmol/L (21-32) Anion Gap 10 (6-14) Blood Urea Nitrogen 9mg/dL (8-26) Creatinine 0.8mg/dL (0.7-1.3) Estimated GFR (Cockcroft-Gault) 131.6 Glucose Level 97mg/dL (70-99) Calcium Level 8.7mg/dL (8.5-10.1) Microbiology 12/19/16 Blood Culture - Preliminary, Resulted NO GROWTH AFTER 1 DAY 12/19/16 Gram Stain - Final, Complete Medications Current Medications Acetaminophen/ Hydrocodone Bitart (Lortab 5/325) 2 tab 1X ONCE PO Last administered on 12/18/16 20:06; Start 12/18/16 at 20:00; Stop 12/18/16 at 20:01 ; Status DC Ketorolac Tromethamine (Toradol Im) 30 mg 1X ONCE IM Last administered on 12/18 20:07; Start 12/18/16 at 20:00; Stop 12/18/16 at 20:01; Status DC Amlodipine Besylate (Norvasc) 10 mg 1X ONCE PO Last administered on 12/18/16 20:41; Start 12/18/16 at 20:30; Stop 12/18/16 at 20:38; Status DC Oxycodone HCl (Roxicodone) 5 mg 1X ONCE PO Last administered on 12/18/16 22: 16; Start 12/18/16 at 22:00; Stop 12/18/16 at 22:01; Status DC Amlodipine Besylate 10 mg 10 mg 1X ONCE PO Last administered on 12/19/16 02: 10; Start 12/19/16 at 02:30; Stop 12/19/16 at 02:31; Status DC Ceftriaxone Sodium (Rocephin 1gm Ivpb For Omni) 50 ml @ 100 mls/hr 1X ONCE IV Last administered on 12/19/16 02:56; Start 12/19/16 at 02:30; Stop 12/19/16 at 02:59; Status DC Ondansetron HCl (Zofran) 4 mg PRN Q8HRS PRN IV NAUSEA/VOMITING; Start 12/19/16 at 03:45; Stop 12/19/16 at 11:53; Status DC Fentanyl Citrate 50 mcg 50 mcg PRN Q2HR PRN IV SEVERE PAIN Last administered on 12/19/16 07:21; Start 12/19/16 at 03:45; Stop 12/19/16 at 11:53; Status DC Sodium Chloride (Iv Sodium Chloride 0.9% 1000ml Bag) 1,000 ml @ 125 mls/hr Q8H IV Last administered on 12/19/16 03:40; Start 12/19/16 at 03:40; Stop at 11:47; Status DC Acetaminophen (Tylenol) 650 mg PRN Q4HRS PRN PO FEVER; Start 12/19/16 at 03:45 ; Stop 12/19/16 at 11:53; Status DC Acetaminophen (Tylenol) 325 mg PRN Q6HRS PRN PO MILD PAIN / TEMP; Start at 10:30 Acetaminophen/ Hydrocodone Bitart (Lortab 5/325) 1 tab PRN Q6HRS PRN PO MODERATE TO SEVERE PAIN Last administered on 12/19/16 21:26; Start 12/19/16 at 10:30 Hydralazine HCl (Apresoline) 10 mg PRN Q4HRS PRN IVP ELEVATED BP, SEE COMMENTS Last administered on 12/19/16 21:25; Start 12/19/16 at 10:30 Ondansetron HCl (Zofran) 4 mg PRN Q8HRS PRN IV NAUSEA/VOMITING; Start 12/19/16 at 10:30 Albuterol Sulfate (Ventolin Neb Soln) 2.5 mg PRN Q4HRS PRN NEB SHORTNESS OF BREATH; Start 12/19/16 at 10:30 Amlodipine Besylate (Norvasc) 10 mg DAILY PO Last administered on 12/20/16 09: 29; Start 12/19/16 at 12:30 Hydrochlorothiazide 12.5 mg 12.5 mg DAILY PO Last administered on 12/20/16 09: 29; Start 12/19/16 at 12:30 Multivitamins/ Thiamine HCl/ Folic Acid/Sodium Chloride (Infuvite Adult/ Iv Sodium Chloride 0.9% 1000ml Bag) 1,011.2 ml @ 100 mls/ hr DAILY IV Last administered on 12/19/16 21:16; Start 12/19/16 at 20:00; Stop 12/25/16 at 19:59 Lorazepam (Ativan) 2 mg Q6H PO ; Start 12/19/16 at 19:00; Stop 12/21/16 at 01:01 Enoxaparin Sodium (Lovenox 40mg Syringe) 40 mg Q12HR SQ Last administered on 09:30; Start 12/19/16 at 21:00 Vitals/I & O Vital Sign - Last 24 Hours 12/19/16 12/19/16 12/19/16 12/19/16 12:23 12:24 13:24 15:20 Temp 97.9 97.9 Pulse 90 89 Resp 16 B/P 172/98 199/130 Pulse Ox 92 94 94 O2 Delivery Room Air Room Air Room Air 12/19/16 12/19/16 12/19/16 12/19/16 15:21 15:27 16:20 19:43 Temp 98.2 98.2 Pulse 89 92 Resp 16 B/P 191/121 191/121 162/100 172/99 Pulse Ox 94 O2 Delivery Room Air 12/19/16 12/19/16 12/19/16 12/20/16 20:00 21:25 23:31 03:30 Temp 98.6 98.5 98.6 98.5 Pulse 92 94 84 Resp 16 16 B/P 172/99 161/94 162/93 Pulse Ox 93 91 O2 Delivery Room Air Room Air Room Air 12/20/16 12/20/16 12/20/16 12/20/16 07:55 08:00 09:29 11:13 Temp 98.4 97.9 98.4 97.9 Pulse 84 84 85 Resp 16 16 B/P 155/99 155/99 164/100 Pulse Ox 93 94 O2 Delivery Room Air Room Air Room Air Intake and Output 12/19/16 12/19/16 12/20/16 15:00 23:00 07:00 Intake Total 0 ml 710 ml Balance 0 ml 710 ml TY DEL RIO MD Dec 20, 2016 12:22
[2016-12-20] MEDS ORDERED: HYDR25TA9 PO (13:13)
[2016-12-20] MEDS ORDERED: AMLO10TA2 PO (13:13)
[2016-12-20 15:53] VITALS: BP 163/100
--- NOTE | 2016-12-20 16:52 | PDOC ---
ORTHO PROGRESS NOTES Subjective The patient had an elbow effusion, aseptic. 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 He is ok for dc from an ortho standpoint. can follow up in my office prn. Vitals Vital Signs Date Time Temp Pulse Resp B/P Pulse Ox O2 Delivery O2 Flow Rate FiO2 12/20/16 15:53 97.7 81 16 163/100 94 Room Air 97.7 Labs Laboratory Tests Test 12/19/16 02:35 12/19/16 07:06 12/20/16 04:45 White Blood Count 6.2x10^3/uL (4.0-11.0) 4.9x10^3/uL (4.0-11.0) Red Blood Count 4.59x10^6/uL (4.30-5.70) 4.32x10^6/uL (4.30-5.70) Hemoglobin 18.0g/dL (13.0-17.5) 16.9g/dL (13.0-17.5) Hematocrit 53.7% (39.0-53.0) 50.6% (39.0-53.0) Mean Corpuscular Volume 117fL (79-100) 117fL (79-100) Mean Corpuscular Hemoglobin 39pg (25-35) 39pg (25-35) Mean Corpuscular Hemoglobin Concent 34g/dL (31-37) 33g/dL (31-37) Red Cell Distribution Width 15.5% (11.5-14.5) 15.3% (11.5-14.5) Platelet Count 195x10^3/uL (140-400) 174x10^3/uL (140-400) Neutrophils (%) (Auto) 56% (31-73) 58% (31-73) Lymphocytes (%) (Auto) 34% (24-48) 30% (24-48) Monocytes (%) (Auto) 9% (0-9) 10% (0-9) Eosinophils (%) (Auto) 1% (0-3) 2% (0-3) Basophils (%) (Auto) 0% (0-3) 1% (0-3) Neutrophils # (Auto) 3.5x10^3uL (1.8-7.7) 2.8x10^3uL (1.8-7.7) Lymphocytes # (Auto) 2.1x10^3/uL (1.0-4.8) 1.4x10^3/uL (1.0-4.8) Monocytes # (Auto) 0.5x10^3/uL (0.0-1.1) 0.5x10^3/uL (0.0-1.1) Eosinophils # (Auto) 0.1x10^3/uL (0.0-0.7) 0.1x10^3/uL (0.0-0.7) Basophils # (Auto) 0.0x10^3/uL (0.0-0.2) 0.0x10^3/uL (0.0-0.2) Platelet Estimate Adequate (ADEQUATE) Giant Platelets Occ Polychromasia Slight Macrocytosis Mod Erythrocyte Sedimentation Rate 3 (0-15) Sodium Level 142mmol/L (136-145) 137mmol/L (136-145) Potassium Level 3.7mmol/L (3.5-5.1) 3.7mmol/L (3.5-5.1) Chloride Level 101mmol/L (98-107) 99mmol/L (98-107) Carbon Dioxide Level 32mmol/L (21-32) 28mmol/L (21-32) Anion Gap 9 (6-14) 10 (6-14) Blood Urea Nitrogen 9mg/dL (8-26) 9mg/dL (8-26) Creatinine 1.0mg/dL (0.7-1.3) 0.8mg/dL (0.7-1.3) Estimated GFR (Cockcroft-Gault) 101.7 131.6 BUN/Creatinine Ratio 9 (6-20) Glucose Level 101mg/dL (70-99) 97mg/dL (70-99) Lactic Acid Level 1.2mmol/L (0.4-2.0) Calcium Level 8.7mg/dL (8.5-10.1) 8.7mg/dL (8.5-10.1) Total Bilirubin 1.6mg/dL (0.2-1.0) Aspartate Amino Transf (AST/SGOT) 30U/L (15-37) Alanine Aminotransferase (ALT/SGPT) 35U/L (16-63) Alkaline Phosphatase 76U/L (46-116) C-Reactive Protein, Quantitative 22.5mg/L (0-3.3) Total Protein 8.5g/dL (6.4-8.2) Albumin 3.7g/dL (3.4-5.0) Albumin/Globulin Ratio 0.8 (1.0-1.7) Body Fluid Source Synovial Body Fluid Color Yellow Body Fluid Clarity Cloudy Body Fluid Nucleated Cells 25247/cmm Body Fluid Mononuclear WBCs (%) 8% Body Fluid Polymorphonuclear Cells 92% Body Fluid Total RBCs Counted 1/cmm Laboratory Tests Test 12/20/16 04:45 White Blood Count 4.9x10^3/uL (4.0-11.0) Red Blood Count 4.32x10^6/uL (4.30-5.70) Hemoglobin 16.9g/dL (13.0-17.5) Hematocrit 50.6% (39.0-53.0) Mean Corpuscular Volume 117fL (79-100) Mean Corpuscular Hemoglobin 39pg (25-35) Mean Corpuscular Hemoglobin Concent 33g/dL (31-37) Red Cell Distribution Width 15.3% (11.5-14.5) Platelet Count 174x10^3/uL (140-400) Neutrophils (%) (Auto) 58% (31-73) Lymphocytes (%) (Auto) 30% (24-48) Monocytes (%) (Auto) 10% (0-9) Eosinophils (%) (Auto) 2% (0-3) Basophils (%) (Auto) 1% (0-3) Neutrophils # (Auto) 2.8x10^3uL (1.8-7.7) Lymphocytes # (Auto) 1.4x10^3/uL (1.0-4.8) Monocytes # (Auto) 0.5x10^3/uL (0.0-1.1) Eosinophils # (Auto) 0.1x10^3/uL (0.0-0.7) Basophils # (Auto) 0.0x10^3/uL (0.0-0.2) Sodium Level 137mmol/L (136-145) Potassium Level 3.7mmol/L (3.5-5.1) Chloride Level 99mmol/L (98-107) Carbon Dioxide Level 28mmol/L (21-32) Anion Gap 10 (6-14) Blood Urea Nitrogen 9mg/dL (8-26) Creatinine 0.8mg/dL (0.7-1.3) Estimated GFR (Cockcroft-Gault) 131.6 Glucose Level 97mg/dL (70-99) Calcium Level 8.7mg/dL (8.5-10.1) BILLY CONTRERAS MD Dec 20, 2016 16:52
[2016-12-21] MEDS ORDERED: HYDROCHLOROTHIAZIDE 25 MG TABLET PO SCH (09:00)
== END 2016-12-20 19:30 | disposition home or self-care (01) | DRG 554 ==
LOC: ER 18:42 → 6 SOUTH 12-19 03:40
PROVIDERS: ADMIT Internal Medicine Hematology & Oncology; ATTEND Internal Medicine Hematology & Oncology
DX: M19.022 Primary osteoarthritis, left elbow (principal); Z68.42 Body mass index [BMI] 45.0-49.9, adult; I10 Essential (primary) hypertension; M10.9 Gout, unspecified; Z86.711 Personal history of pulmonary embolism; E66.9 Obesity, unspecified
CPT/HCPCS: 36415; 73080; 76770; 80048; 80053; 83605; 85007; 85027; 85651; 86140; 87040; 87071; 87075; 87102; 87116; 87205; 89050; 89060; 93971; 96372; J0360; J0690; J1650; J1885; J3010; J7030; 99285-25